=== PATIENT | male | born 2000 | race Caucasian/White ===

== ENCOUNTER 2023-06-28 12:45 | Outpatient (CLI) | payer SELFPAY ==
--- NOTE | 2023-06-28 13:00 | MR_ITS ---
Patient: LOUIS BARON Facility:?[facility] RIS Patient ID:?[id number] Site Patient ID:?[id number]. Site :?[id number] Study:?MRI-Extremity Left ANKLE-06/28/2023 3:22:55 PM Ordering Physician:JOE SHEPARD Final Report: EXAM: MRI OF THE LEFT ANKLE, WITHOUT CONTRAST CLINICAL INDICATION: Left lateral ankle pain. COMPARISON PLAIN FILMS: None. COMPARISON CROSS-SECTIONAL IMAGING STUDIES: None. TECHNICAL: Axial, sagittal and coronal T1, PD, PD FS and STIR images. FINDINGS: OSSEOUS STRUCTURES: No fracture, bone marrow contusion, stress change or marrow replacement process. JOINT SPACES: The ankle joint space is maintained without joint effusion. No talar dome osteochondral lesion. No joint bodies are identified. There is a undermining full-thickness chondral fissure in the posterior and lateral margin of the posterior subtalar joint at the calcaneal articulation with slight elevation of the chondral flap at the posterior margin. There is an additional 0.3 cm full-thickness chondral fissure in the posterior calcaneal margin of the posterior subtalar joint. Mild hypertrophic spurring in the lateral subtalar joint. Degenerative subchondral sclerosis and irregular chondral fissuring in the posterior and lateral aspect of the talus at the posterior subtalar joint. Subchondral edema in the talus and calcaneus adjacent to the posterior subtalar joint. Mild subchondral edema in the talus adjacent to the middle subtalar joint likely due to overlying chondromalacia. The talonavicular and calcaneocuboid joint spaces are maintained. Joint spaces within the visualized midfoot and at the midfoot forefoot junction are maintained. LIGAMENTS: Syndesmotic Ligaments: The anterior and posterior syndesmotic ligaments are intact. Lateral Ligaments: The anterior talofibular ligament is intact. The calcaneofibular ligament is intact. The posterior talofibular ligament is intact. Medial Ligaments: The superficial and deep components of the deltoid ligament complex are maintained. Spring Ligaments: The calcaneonavicular spring ligament complex is intact. TENDONS: Flexor Tendons: The posterior tibial, flexor digitorum longus and flexor hallucis longus tendons are intact. Extensor Tendons: The anterior extensor tendons are intact. Achilles Tendon: The Achilles tendon is intact without tendinosis, tear or peritendinitis changes. Peroneal Tendons: The peroneus longus and brevis tendons are intact. No subluxation of the peroneal tendons. TARSAL TUNNEL: The soft tissues of the tarsal tunnel are normal without mass or fluid collection. No abnormality along the course of the medial or lateral plantar nerves. SINUS TARSI: The structures of the sinus tarsi appear normal. No disruption of the interosseous ligaments or significant effacement of fat. PLANTAR SOFT TISSUES: The plantar fascia is intact. There is no significant plantar calcaneal spur. No atrophy or edema of the abductor digiti minimi muscle belly. SOFT TISSUES: There is no soft tissue mass or fluid collection. IMPRESSION: 1. 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 2. Mild subchondral edema in the talus at the middle subtalar joint likely due to overlying chondromalacia. Dictated by Rakan Levy MD @ 06/29/2023 10:13:56 AM Signed by:?Rakan Levy MD @06/29/2023 10:13:56 AM (Electronic Signature)
== END 2023-06-28 12:46 | disposition home or self-care (01) ==
PROVIDERS: PCP Physician Assistant Medical; Visit Provider Physician Assistant Medical
DX: M25.572 Pain in left ankle and joints of left foot (principal); M19.072 Primary osteoarthritis, left ankle and foot; M94.212 Chondromalacia, left shoulder
CPT/HCPCS: 73721